=== PATIENT | male | born 2000 | race Caucasian/White ===

== ENCOUNTER 2019-11-18 05:08 | Emergency (ER) | payer OTHER ==
[2019-11-18] MEDS ORDERED: Ketorolac Tromethamine 30 MG/ML VIAL ONE (05:28)
[2019-11-18] MEDS ORDERED: HYDROcodone/Acetaminophen 10/325 mg Tablet ONE (05:28)
--- NOTE | 2019-11-18 08:29 | RAD ---
CERVICAL SPINE: DATE: 11/18/2019. FINDINGS: AP, lateral, and open mouth views are provided. The odontoid to C1 distance is normal. No fracture, disk space narrowing, or bone spurs were seen. The soft tissues are normal in thickness. IMPRESSION: No acute bony findings. If further workup is needed, MRI might be useful to detect any neural imping ement. POS: HOME
== END 2019-11-18 06:00 | disposition home or self-care (01) ==
LOC: BURERS 05:08
DX: M62.838 Other muscle spasm (principal); F90.9 Attention-deficit hyperactivity disorder, unspecified type; Z79.899 Other long term (current) drug therapy
CPT/HCPCS: 72040; 96372; J1885